=== PATIENT | female | born 1950 | race Caucasian/White ===

== ENCOUNTER 2020-09-07 11:30 | Emergency (ER) | payer MEDICARE, OTHER ==
[~2020-09-07 11:30] MED LIST: ASPIR 8181 MG PO; BACLOFEN 10MG T10 MG PO; CRESTOR40 MG PO; GABAPENTIN800 MG PO; HUMALOG OMNIPOD; HYDROCODON-ACE1 EAC6 PO; LASIX20 MG PO; MIRAPEX0.25 MG PO; OZEMPIC1 MG/0.75 IJ; PRILOSEC20 MG PO; PRINIVIL20 MG PO; PROZAC40 MG PO; ZETIA10 MG PO
[2020-09-07 12:36] LABS: BASOPHIL 0.6 % (0-2); EOSINOPHIL 2.3 % (0-7); HCT 42.2 % (37.0-47.0); HGB 13.5 g/dl (12.5-16.0); LYMPHOCYTE 19.7 % (15-48); MCH 29.6 pg (25.0-31.0); MCV 92.5 fL (78.0-100.0); MONOCYTE 6.9 % (0-12); MPV 10.1 fL (6.0-9.5); NEUTROPHIL 70.1 % (41-80); NRBC 0; PLT 161 K/uL (150-400); RBC 4.56 M/uL (4.20-5.40); WBC 7.8 K/uL (4.0-10.5)
[2020-09-07 12:58] LABS: ALBUMIN 3.3 g/dL (3.4-5.0); BILIRUBIN - TOTAL 0.9 mg/dL (0.2-1.0); BUN/CREAT RATIO (CALC) 23.4 RATIO; CREATININE 0.77 mg/dL (0.51-0.95); GLOBULIN (CALCULATION) 3.1 g/dL; MAGNESIUM 2.2 mg/dL (1.8-2.4); POTASSIUM 4.9 mmol/L (3.5-5.1); TOTAL PROTEIN 6.4 g/dL (6.4-8.2)
[2020-09-07 13:02] LABS: INR 0.98 (0.9-1.2); PROTHROMBIN TIME 12.4 SECONDS (11.8-13.4); PTT 22.7 SECONDS (24.4-34.7)
[2020-09-07] MEDS ORDERED: NORCO 5-325 TA1 EACH PO (15:24)
[2020-10-04] MEDS ORDERED: VASCEPA1 GM PO (11:24)
[2020-10-04] MEDS ORDERED: BUPROPION XL300 MG PO (11:24)
[2020-10-04] MEDS ORDERED: FARXIGA10 MG PO (11:25)
[2020-10-04] MEDS ORDERED: BRIN5TAB PO (11:25)
[2020-10-04] MEDS ORDERED: TOPROL XL 25MG25 MG PO (11:27)
[2020-10-04] MEDS ORDERED: VITAMIN D3125 MC2 PO (11:27)
[2020-10-04] MEDS ORDERED: CARAFATE1 GM PO (11:28)
[2020-10-04] MEDS ORDERED: VITAMIN B122500 MC1 PO (11:28)
== END 2020-09-07 15:57 | disposition home or self-care (01) ==
LOC: FER 11:30
PROVIDERS: Emergency Medicine
DX: R42 Dizziness and giddiness (principal); S42.202A Unspecified fracture of upper end of left humerus, initial encounter for closed fracture; S00.83XA Contusion of other part of head, initial encounter; S80.212A Abrasion, left knee, initial encounter; I10 Essential (primary) hypertension; E78.5 Hyperlipidemia, unspecified; E11.9 Type 2 diabetes mellitus without complications; K21.9 Gastro-esophageal reflux disease without esophagitis; Z85.3 Personal history of malignant neoplasm of breast; Z88.5 Allergy status to narcotic agent; Y92.009 Unspecified place in unspecified non-institutional (private) residence as the place of occurrence of the external cause
CPT/HCPCS: 36415; 70450; 71045; 72125; 73030; 73060; 73560; 80053; 83735; 84484; 85025; 85610; 85730; 93005; J1170; J2270; J2405

== ENCOUNTER 2020-10-31 05:31 | Day surgery (SDC) | payer MEDICARE, OTHER ==
[~2020-10-31] VITALS: Ht 170 cm; Wt 97.0 kg
[~2020-10-31 05:31] MED LIST changes: +BRIN5TAB PO; +BUPROPION XL300 MG PO; +CARAFATE1 GM PO; +FARXIGA10 MG PO; +NORCO 5-325 TA1 EACH PO; +TOPROL XL 25MG25 MG PO; +VASCEPA1 GM PO; +VITAMIN B122500 MC1 PO; +VITAMIN D3125 MC2 PO
[2020-10-31] MEDS ORDERED: PERCOCET 5-3251 EACH PO (06:47)
[2020-10-31 23:06] LABS: BASOPHIL 0 % (0-2); EOSINOPHIL 0 % (0-7); HCT 36.8 % (37.0-47.0); LYMPHOCYTE 8.7 % (15-48); MCH 30.7 pg (25.0-31.0); MCHC 32.6 g/dL (32.0-36.0); MCV 94.1 fL (78.0-100.0); MONOCYTE 5.2 % (0-12); NEUTROPHIL 85.7 % (41-80); NRBC 0; PLT 166 K/uL (150-400); RBC 3.91 M/uL (4.20-5.40); RDW 12.8 % (11.5-14.0); WBC 9.7 K/uL (4.0-10.5)
[2020-10-31 23:24] LABS: BILIRUBIN - TOTAL 1.1 mg/dL (0.2-1.0); BUN/CREAT RATIO (CALC) 34.4 RATIO; CREATININE 0.9 mg/dL (0.51-0.95); GLOBULIN (CALCULATION) 3.1 g/dL; POTASSIUM 5.4 mmol/L (3.5-5.1); TOTAL PROTEIN 6.1 g/dL (6.4-8.2)
[2020-11-01 06:48] LABS: BASOPHIL 0.1 % (0-2); EOSINOPHIL 0 % (0-7); HCT 35.9 % (37.0-47.0); HGB 11.1 g/dl (12.5-16.0); LYMPHOCYTE 8.7 % (15-48); MCH 30.5 pg (25.0-31.0); MCHC 30.9 g/dL (32.0-36.0); MONOCYTE 9.2 % (0-12); MPV 10.8 fL (6.0-9.5); NEUTROPHIL 81.4 % (41-80); NRBC 0; PLT 162 K/uL (150-400); RBC 3.64 M/uL (4.20-5.40); RDW 12.6 % (11.5-14.0)
[2020-11-01 06:53] LABS: MCV 98.6 fL (78.0-100.0)
[2020-11-01 07:28] LABS: CREATININE 0.81 mg/dL (0.51-0.95); POTASSIUM 5.1 mmol/L (3.5-5.1)
[2020-11-01] MEDS ORDERED: ASPIRIN81 MG PO (09:42)
[2020-11-01] MEDS ORDERED: FEOSOL325 MG PO (09:42)
[2020-11-01] MEDS ORDERED: NORCO 5-325 TA1 EACH PO (09:44)
== END 2020-11-01 12:00 | disposition home or self-care (01) ==
LOC: FAS 05:31 → FMS 07:00 → EDSTATUS 07:00 → FAS 11-01 12:00
PROVIDERS: Nurse Practitioner; Orthopaedic Surgery
DX: S42.202A Unspecified fracture of upper end of left humerus, initial encounter for closed fracture (principal); S46.012A Strain of muscle(s) and tendon(s) of the rotator cuff of left shoulder, initial encounter; E11.9 Type 2 diabetes mellitus without complications; I10 Essential (primary) hypertension; E78.5 Hyperlipidemia, unspecified; G47.30 Sleep apnea, unspecified; K21.9 Gastro-esophageal reflux disease without esophagitis; Z79.82 Long term (current) use of aspirin; Z79.4 Long term (current) use of insulin; Z79.899 Other long term (current) drug therapy; X58.XXXA Exposure to other specified factors, initial encounter
CPT/HCPCS: 36415; 73020; 80048; 80053; 84484; 85025; 86850; 86900; 86901; 93005; 94010; 97162; 97166; 97530-GP; 97535; C1713; C1776; J0171; J0697; J1100; J1885; J2250; J2270; J2704; J2710; J2795; J3010; J7030; J7120